=== PATIENT | male | born 1990 | race Two or more races ===

== ENCOUNTER 2020-12-11 12:55 | Emergency (ER) | payer OTHER ==
[~2020-12-11] VITALS: Ht 185.4 cm; Wt 100.0 kg
[2020-12-11] MEDS ORDERED: ALBU8HFA IH (13:10)
[2020-12-11] MEDS ORDERED: ALBUTEROL SULFATE 2.5 MG/0.5 ML NEB SOLUTION NEB ONE ×3 (13:17→15:30)
[2020-12-11] MEDS ORDERED: IPRATROPIUM BROMIDE 0.5 MG/2.5 ML NEB SOLUTION NEB ONE ×2 (13:17→13:30)
[2020-12-11 14:29] LABS: COVID AG,FIA SOURCE NASOPHARYNGEAL
[2020-12-11] MEDS ORDERED: DEXAMETHASONE SOD PHOS 4 MG/ML 5 ML VIAL IVP ONE (14:45)
[2020-12-11 15:30] VITALS: BP 112/79
[2020-12-11] MEDS ORDERED: MAGNESIUM SULFATE 4 GM/WATER 100 ML IV ONE (15:30)
== END 2020-12-11 16:01 | disposition left against medical advice (07) ==
LOC: EMS 13:05
DX: J45.909 Unspecified asthma, uncomplicated (principal); Z20.822 Contact with and (suspected) exposure to COVID-19
CPT/HCPCS: 71045; 87426; 93005; 94640; 96374; 99285; J1100; J3475; J7613